=== PATIENT | female | born 2000 ===

== ENCOUNTER 2018-06-05 09:28 | Inpatient (IN) | payer OTHER ==
[2018-06-05 09:34] VITALS: BMI 24.6
--- NOTE | 2018-06-05 10:10 | ED PDOC ---
Addendum entered and electronically signed by Vane Keane PA-C 06/05/18 16:47: Addendum Addendum: 06/05/18 16:46 DX: appendicitis, Sepsis Original Note: HPI: Abdomen Time Seen by Provider: 06/05/18 09:40 Chief Complaint (Nursing): Abdominal Pain Chief Complaint (Provider): Abdominal pain History Per: Patient Additional Complaint(s): 18 yo female, no PMH, presents to ED with complaints of generalized abdominal pain, associated w/ nausea and vomiting since last night. No fever or chills, no denies diarrhea. Pt reports pain initially presented in epigastric region, now radiating down to lower quadrants. Past Medical History Reviewed: Nursing Documentation, Vital Signs Vital Signs: Last Vital Signs Temp 98.7 F 06/05/18 09:31 Pulse 96 H 06/05/18 09:31 Resp 20 06/05/18 09:31 BP 118/77 06/05/18 09:31 Pulse Ox 99 06/05/18 09:31 - Medical History PMH: No Chronic Diseases Denies: Chronic Kidney Disease - Surgical History Surgical History: - Family History Family History: States: No Known Family Hx - Living Arrangements Living Arrangements: With Family - Social History Current smoker - smoking cessation education provided: No Alcohol: None Drugs: Denies - Home Medications Home Medications: Ambulatory Orders Medication Instructions Recorded No Known Home Med 06/05/18 - Allergies Allergies/Adverse Reactions: Allergies Allergy/AdvReac Type Severity Reaction Status Date / Time No Known Allergies Allergy Verified 06/05/18 09:48 Review of Systems ROS Statement: Except As Marked, All Systems Reviewed And Found Negative Gastrointestinal: Positive for: Nausea, Vomiting, Abdominal Pain Physical Exam - Reviewed Nursing Documentation Reviewed: Yes Vital Signs Reviewed: Yes - Physical Exam Appears: Positive for: Well, Non-toxic, No Acute Distress Head Exam: Positive for: ATRAUMATIC, NORMAL INSPECTION, NORMOCEPHALIC Skin: Positive for: Normal Color, Warm, DRY Eye Exam: Positive for: EOMI, Normal appearance, PERRL ENT: Positive for: Normal ENT Inspection Neck: Positive for: Normal, Painless ROM Cardiovascular/Chest: Positive for: Regular Rate, Rhythm Respiratory: Positive for: CNT, Normal Breath Sounds Gastrointestinal/Abdominal: Positive for: Soft, Tenderness (epihastric, umbilical tenderness), Rebound. Negative for: Distended, Guarding Back: Positive for: Normal Inspection Extremity: Positive for: Normal ROM Neurologic/Psych: Positive for: Alert, Oriented - Laboratory Results Result Diagrams: 06/05/18 10:27 06/05/18 10:27 - ECG O2 Sat by Pulse Oximetry: 99 Medical Decision Making Medical Decision Making: IV access established and treatment initiated with IVF, Zofran and Toradol. On re-eval, Pt doing well, able to tolerate PO contrast Labs resulted WBC 18.2 Pulse 96 IMPRESSION: Possible thickened appendix in the anterior aspect of the mid to lower pelvis. Appendicitis cannot be excluded on this exam. Small low-density possible follicular cysts in the right ovary with a small amount of nonspecific fluid in the cul-de-sac region. Results called to the emergency room physician taking care of this patient. Surgical consultation is suggested. IV Cefoxitine Started. Blood cultures obtained Prior to antibiotic therapy. residential air sealing technician contacted and presented to see and evaluate pt at bedside. Arrangements made for admission. Pt advised to remain NPO Disposition - Clinical Impression Clinical Impression: Appendicitis - Patient ED Disposition Is Patient to be Admitted: Yes - Disposition Disposition Time: 15:13 Condition: STABLE Forms: [employer] (Kazakh) - Pt Status Changed To: Hospital Disposition Of: Inpatient - Admit Certification Admit to Inpatient:: After my assessment, the patient will require hospitalization for at least two midnights. This is because of the severity of symptoms shown, intensity of services needed, and/or the medical risk in this patient being treated as an outpatient.
[2018-06-05] MEDS ORDERED: Iohexol 240 (50 ml) PO ONE (10:14)
[2018-06-05] MEDS ORDERED: Iohexol 240 (50 ml) ONE (10:22)
[2018-06-05 10:40] LABS: BASO % 0.2 % (0.0-2.0); HEMOGLOBIN 12.6 g/dL (12.0-16.0); LYMPH % 7.2 % (20.0-40.0); MEAN CELL VOLUME 89.1 fl (81.0-99.0); MEAN CORPUSCULAR HEMOGLOBIN 29.8 pg (27.0-31.0); MEAN CORPUSCULAR HGB CONC 33.5 g/dL (33.0-37.0); MEAN PLATELET VOLUME 9.6 fl (7.2-11.7); MONO % 2.9 % (0.0-10.0); NEUT % 89.7 % (50.0-75.0); PLATELET COUNT 354 K/uL (130-400); RBC 4.23 Mil/uL (3.80-5.20); RED CELL DISTRIBUTION WIDTH 13.7 % (11.5-14.5); WHITE BLOOD COUNT 18.2 K/uL (4.8-10.8)
[2018-06-05 10:41] LABS: LYMPH # 1.3 K/uL (1.0-4.3); MONO # 0.5 K/uL (0.0-0.8); NEUT # 16.3 K/uL (1.8-7.0)
[2018-06-05 10:57] LABS: SQUAMOUS EPITHIAL 3 /hpf (0-5); URINE BILIRUBIN NEGATIVE (NEGATIVE); URINE BLOOD NEGATIVE (NEGATIVE); URINE CLARITY SLIGHTY-CLOUDY (Clear); URINE COLOR YELLOW (YELLOW); URINE GLUCOSE (UA) NEG (Normal); URINE LEUKOCYTE ESTERASE NEG Leu/uL (Negative); URINE PROTEIN 100 mg/dL (NEGATIVE)
[2018-06-05 10:58] LABS: ALB/GLOB RATIO 1.3 (1.0-2.1); ALBUMIN 4.8 g/dL (3.5-5.0); ALT/SGPT 22 U/L (9-52); AMYLASE 90 U/L (30-110); AST/SGOT 26 U/L (14-36); BLOOD UREA NITROGEN 9 mg/dl (7-17); CALCIUM 10.1 mg/dL (8.4-10.2); GFR NON-AFRICAN AMERICAN > 60; LIPASE 37 U/L (23-300)
[2018-06-05 11:42] LABS: ANISOCYTOSIS SLIGHT; BANDS 2 % (0-2); LYMPHOCYTE 8 % (20-50); MONOCYTE 1 % (0-10); NEUTROPHIL 89 % (42-75); PLATELET ESTIMATE NORMAL (NORMAL); TOTAL CELLS COUNTED 100
[2018-06-05] MEDS ORDERED: Iohexol 300 100 ML IJ ONE (12:28)
[2018-06-05] MEDS ORDERED: Sodium Chloride 0.9% 50 ML IV ONE (12:29)
--- NOTE | 2018-06-05 13:56 | CT ---
Date of service: 06/05/2018 PROCEDURE: CT Abdomen and Pelvis with contrast HISTORY: r/o appy COMPARISON: None. TECHNIQUE: Contrast dose: 95 mL Radiation dose: Total exam DLP = 439 mGy-cm. This CT exam was performed using one or more of the following dose reduction techniques: Automated exposure control, adjustment of the mA and/or kV according to patient size, and/or use of iterative reconstruction technique. FINDINGS: LOWER THORAX: No infiltrate is seen at the lung bases. No effusion is noted. Visualized distal esophagus is within normal limits. Visualized stomach is normal in outline without wall thickening. Duodenum is within normal limits. LIVER: Unremarkable. No gross lesion or ductal dilatation. GALLBLADDER AND BILE DUCTS: Unremarkable. PANCREAS: Unremarkable. No gross lesion or ductal dilatation. SPLEEN: Unremarkable. ADRENALS: Unremarkable. No mass. KIDNEYS AND URETERS: Unremarkable. No hydronephrosis. No solid mass. VASCULATURE: Unremarkable. No aortic aneurysm. BOWEL: No colonic wall thickening or pericolonic inflammatory change is seen. No small bowel dilatation or small bowel obstruction is noted. Terminal ileum is unremarkable. There may be some mildly thickened bowel loops within the lower abdomen an anterior pelvis. APPENDIX: There appears to be the suggestion of a thickened tubular structure in the anterior aspect of the abdomen. This would appear to reflect a possible thickened and inflamed appendix. There does not appear to be significant periappendiceal inflammatory changes. Alternatively this could represent a thickened small bowel loop although the former is felt to be more likely. Findings may suggest appendicitis in the correct clinical setting. No focal fluid collection to suggest abscess is seen. No free air or bowel wall perforation is noted. PERITONEUM: Small amount of fluid in the pelvis. No free air. LYMPH NODES: Unremarkable. No enlarged lymph nodes. BLADDER: Bladder is decompressed limiting evaluation. REPRODUCTIVE: Uterus is normal in size with a possible small amount of low-density fluid in the endometrial region. In addition there are small areas of decreased density seen in the right adnexa which may reflect some small ovarian follicles. Lesser degree are seen on the left. Small amount of fluid is also seen in the cul-de-sac region. BONES: No acute fracture. OTHER FINDINGS: None. IMPRESSION: Possible thickened appendix in the anterior aspect of the mid to lower pelvis. Appendicitis cannot be excluded on this exam. Small low-density possible follicular cysts in the right ovary with a small amount of nonspecific fluid in the cul-de-sac region. Results called to the emergency room physician taking care of this patient. Surgical consultation is suggested.
[2018-06-05] MEDS ORDERED: Lactated Ringer's 1,000 ML IV SCH ×2 (15:00→18:30)
--- NOTE | 2018-06-05 15:07 | CP.PCM.CON ---
History of Present Illness - History of Present Illness History of Present Illness: General Surgery Consult Note for Dr. Walker 18 year old female, no significant past medical history, presents to the emergency department with lower quadrant abdominal pain since last night. Patient states she was having intermittent abdominal pain described as achy, cramping that became more constant and sharp last night around 10pm. The pain was initially diffuse and has now localized to the lower quadrant bilaterally but worse in the periumbilical region. She had a similar episode 1.5 months ago that resolved with over the counter pain medication; however, this episode remained after taking Advil and a laxative. She vomiting 5x overnight with the last episode bilious, nonbloody. States that movement aggravates the pain and lying still alleviates symptoms. Her last bowel movement was yesterday evening. She denies passing of flatus since symptom onset. Admits to feeling nauseous. Denies fever, chills, shortness of breath, chest pain, or urinary symptoms. PMH: none PSH: x1 FH: non-contributory ALL: none Meds: none Review of Systems - Constitutional Constitutional: absent: Chills, Fever - Cardiovascular Cardiovascular: absent: Chest Pain, Palpitations - Respiratory Respiratory: absent: Cough, Dyspnea - Gastrointestinal Gastrointestinal: Abdominal Pain, Constipation, Cramping, Nausea, Vomiting. absent: Diarrhea, Excessive Flatus, Hematemesis, Hematochezia - Genitourinary Genitourinary: absent: Dysuria, Flank Pain, Hematuria - Musculoskeletal Musculoskeletal: absent: Arthralgias, Back Pain - Integumentary Integumentary: absent: Bleeding Lesions, Changing Lesions - Neurological Neurological: absent: Confusion, Dizziness - Psychiatric Psychiatric: absent: Anxiety, Depression Past Patient History - Infectious Disease Hx of Infectious Diseases: None - Tetanus Immunizations Tetanus Immunization: Unknown - Past Social History Alcohol: None Drugs: Denies - PULMONARY Hx Respiratory Disorders: No - NEUROLOGICAL Hx Neurological Disorder: No - HEENT Hx HEENT Problems: No - RENAL Hx Chronic Kidney Disease: No - ENDOCRINE/METABOLIC Hx Endocrine Disorders: No - HEMATOLOGICAL/ONCOLOGICAL Hx Blood Disorders: No - INTEGUMENTARY Hx Dermatological Problems: No - MUSCULOSKELETAL/RHEUMATOLOGICAL Hx Musculoskeletal Disorders: No - GASTROINTESTINAL Hx Gastrointestinal Disorders: No - GENITOURINARY/GYNECOLOGICAL Hx Genitourinary Disorders: No - PSYCHIATRIC Hx Psychophysiologic Disorder: No Hx Substance Use: No - SURGICAL HISTORY Hx Section: Yes - ANESTHESIA Hx Anesthesia: Yes Hx Anesthesia Reactions: No Meds Allergies/Adverse Reactions: Allergies Allergy/AdvReac Type Severity Reaction Status Date / Time No Known Allergies Allergy Verified 06/05/18 09:48 - Medications Medications: Current Medications Cefoxitin Sodium 2 gm/ Sodium (Chloride) 100 mls @ 100 mls/hr IVPB Q6 PAULO; Protocol Ciprofloxacin (Cipro 400mg/200ml Dsw) 400 mg in 200 mls @ 200 mls/hr IVPB Q12 PAULO; Protocol Metronidazole (Flagyl 500mg/100ml Ns) 100 mls @ 100 mls/hr IVPB Q12 PAULO; Protocol Lactated Ringer's (Lactated Ringer's) 1,000 mls @ 100 mls/hr IV .Q10H PAULO Morphine Sulfate (Morphine) 1 mg IVP Q4 PRN PRN Reason: Pain, moderate (4-7) Morphine Sulfate (Morphine) 2 mg IVP Q4 PRN PRN Reason: Pain, severe (8-10) Ondansetron HCl (Zofran Inj) 4 mg IVP Q6 PRN PRN Reason: Nausea/Vomiting Physical Exam - Constitutional Appears: Well, Non-toxic, No Acute Distress - Head Exam Head Exam: ATRAUMATIC, NORMAL INSPECTION, NORMOCEPHALIC - Eye Exam Eye Exam: EOMI Pupil Exam: PERRL - ENT Exam ENT Exam: Mucous Membranes Moist - Respiratory Exam Respiratory Exam: Clear to Auscultation Bilateral, NORMAL BREATHING PATTERN - Cardiovascular Exam Cardiovascular Exam: REGULAR RHYTHM, +S1, +S2. absent: Systolic Murmur - GI/Abdominal Exam GI & Abdominal Exam: Soft, Tenderness (diffuse tenderness particularly in the lower quadrants). absent: Distended, Guarding, Rebound - Neurological Exam Neurological exam: Alert, Oriented x3 - Psychiatric Exam Psychiatric exam: Normal Affect, Normal Mood - Skin Skin Exam: Dry, Intact, Normal Color, Warm Results - Vital Signs Recent Vital Signs: Last Vital Signs Temp 98.7 F 06/05/18 09:31 Pulse 96 H 06/05/18 09:31 Resp 20 06/05/18 09:31 BP 118/77 06/05/18 09:31 Pulse Ox 99 06/05/18 15:01 - Labs Result Diagrams: 06/05/18 10:27 06/05/18 10:27 Labs: Laboratory Results - last 24 hr 06/05/18 06/05/18 06/05/18 10:27 10:27 10:27 WBC 18.2 H RBC 4.23 Hgb 12.6 Hct 37.6 MCV 89.1 MCH 29.8 MCHC 33.5 RDW 13.7 Plt Count 354 MPV 9.6 Neut % (Auto) 89.7 H Lymph % (Auto) 7.2 L [place] % (Auto) 2.9 Eos % (Auto) 0.0 Baso % (Auto) 0.2 Neut # (Auto) 16.3 H Lymph # (Auto) 1.3 [place] # (Auto) 0.5 Eos # (Auto) 0.0 Baso # (Auto) 0.0 Neutrophils % (Manual) 89 H Band Neutrophils % 2 Lymphocytes % (Manual) 8 L Monocytes % (Manual) 1 Platelet Estimate Normal Anisocytosis (manual) Slight Sodium 139 Potassium 4.3 Chloride 105 Carbon Dioxide 24 Anion Gap 14 BUN 9 Creatinine 0.5 L Est GFR ( Amer) > 60 Est GFR (Non-Af Amer) > 60 Random Glucose 123 H Calcium 10.1 Total Bilirubin 0.7 AST 26 ALT 22 Alkaline Phosphatase 81 Total Protein 8.4 H Albumin 4.8 Globulin 3.6 Albumin/Globulin Ratio 1.3 Amylase 90 Lipase 37 Urine Color Yellow Urine Clarity Slighty-cloudy Urine pH 7.0 Ur Specific [place] 1.024 Urine Protein 100 Urine Glucose (UA) Neg Urine Ketones Trace Urine Blood Negative Urine Nitrate Negative Urine Bilirubin Negative Urine Urobilinogen 2.0 H Ur Leukocyte Esterase Neg Urine RBC (Auto) 3 Urine Microscopic WBC 5 Ur Squamous Epith Cells 3 Assessment & Plan - Assessment and Plan (Free Text) Assessment: 18F, no significant PMH, w/ acute appendicitis Plan: -NPO -IVF -IV Abx -Pain control and antiemetics -OR today -Consented -Further recommendations per Dr. Aaron Logan PGY1
[2018-06-05] MEDS: cefOXitin 2 GM in Sodium Chloride 0.9% 100 ML IVPB SCH ×2 (15:45→16:00)
[2018-06-05 15:48] LABS: VENOUS BLOOD GAS BASE EXCESS -1.8 mmol/L (0.0-2.0); VENOUS BLOOD GAS PCO2 42 mmHg (40-60); VENOUS BLOOD GAS PO2 35 mm/Hg (30-55); VENOUS BLOOD PH 7.36 (7.32-7.43)
--- NOTE | 2018-06-05 16:30 | CP.PCM.HP ---
<Angel Ricks - Last Filed: 06/05/18 17:09> History of Present Illness - History of Present Illness History of Present Illness: This is 18 y/o female with PMH of exercise induced asthma comes to the ER c/o 1 day history of abdominal pain and vomiting. Abdominal pain started at 10 pm last night on right upper abdomen which progressed to right lower and left abdomen. Patient woke up few times from sleep overnight due to this pain, reports taking laxatives and Advil to relive this pain but didn't really help. Pain is 8/10, generalized, sharp associated with nausea and vomiting, movements make it worse, denies any fever. Patient reports NBNB vomiting x5 overnight, no f/c/d/c. Patient denies any chest pain, SOB, urinary symptoms or weakness. PMD: [place] [place] PMH: Exercise induced asthma in childhood PSH: , 4 years ago Meds: None Allg: Denies FH: + For liver cancers SH: Social alcohol and smoking, no illicit drug use ROS: As per HPI ER Course: VS: 98.7, 96, 20, 118/77, 99% CBC: Significant for wbc 18.2 CMP: wnl VBG and UA was done Pending Coag, Bcx CT Abdo/Pelvis: Appendicitis S/p Cefoxitine C/w Cipro and Flagyl S/P IVF, Morphine, pepcid and Zofran Present on Admission - Present on Admission Any Indicators Present on Admission: No Past Patient History - Infectious Disease Hx of Infectious Diseases: None - Tetanus Immunizations Tetanus Immunization: Unknown - Past Medical History & Family History Past Medical History?: No - Past Social History Alcohol: None Drugs: Denies - CARDIAC Hx Cardiac Disorders: No - PULMONARY Hx Respiratory Disorders: Yes (exercise-induced) - NEUROLOGICAL Hx Neurological Disorder: No - HEENT Hx HEENT Problems: No - RENAL Hx Chronic Kidney Disease: No - ENDOCRINE/METABOLIC Hx Endocrine Disorders: No - HEMATOLOGICAL/ONCOLOGICAL Hx Blood Disorders: No - INTEGUMENTARY Hx Dermatological Problems: No - MUSCULOSKELETAL/RHEUMATOLOGICAL Hx Musculoskeletal Disorders: No - GASTROINTESTINAL Hx Gastrointestinal Disorders: No - GENITOURINARY/GYNECOLOGICAL Hx Genitourinary Disorders: No - PSYCHIATRIC Hx Psychophysiologic Disorder: No - SURGICAL HISTORY Hx Section: Yes - ANESTHESIA Hx Anesthesia: Yes Hx Anesthesia Reactions: No Meds Allergies/Adverse Reactions: Allergies Allergy/AdvReac Type Severity Reaction Status Date / Time No Known Allergies Allergy Verified 06/05/18 09:48 Physical Exam - Constitutional Appears: No Acute Distress - Head Exam Head Exam: NORMAL INSPECTION - Eye Exam Eye Exam: EOMI, Normal appearance, PERRL Pupil Exam: NORMAL ACCOMODATION - ENT Exam ENT Exam: Mucous Membranes Moist - Neck Exam Neck exam: Positive for: Normal Inspection - Respiratory Exam Respiratory Exam: Clear to Auscultation Bilateral, NORMAL BREATHING PATTERN. absent: Accessory Muscle Use, Chest Wall Tenderness, Decreased Breath Sounds, Prolonged Expiratory Phase, Wheezes - Cardiovascular Exam Cardiovascular Exam: REGULAR RHYTHM, +S1, +S2 - GI/Abdominal Exam GI & Abdominal Exam: Hypoactive Bowel Sounds, Soft, Tenderness (periumbilical and RLQ). absent: Organomegaly, Rebound - Extremities Exam Extremities exam: Positive for: normal inspection - Back Exam Back exam: NORMAL INSPECTION. absent: CVA tenderness (L), CVA tenderness (R) - Neurological Exam Neurological exam: Alert, CN II-XII Intact, Normal Gait, Oriented x3 - Psychiatric Exam Psychiatric exam: Normal Affect - Skin Skin Exam: Normal Color Results - Vital Signs Recent Vital Signs: Last Vital Signs Temp 98.7 F 06/05/18 16:03 Pulse 96 H 06/05/18 16:03 Resp 20 06/05/18 16:03 BP 118/77 06/05/18 16:03 Pulse Ox 99 06/05/18 15:14 - Labs Result Diagrams: 06/05/18 10:27 06/05/18 10:27 Labs: Laboratory Results - last 24 hr 06/05/18 06/05/18 06/05/18 10:27 10:27 10:27 WBC 18.2 H RBC 4.23 Hgb 12.6 Hct 37.6 MCV 89.1 MCH 29.8 MCHC 33.5 RDW 13.7 Plt Count 354 MPV 9.6 Neut % (Auto) 89.7 H Lymph % (Auto) 7.2 L [place] % (Auto) 2.9 Eos % (Auto) 0.0 Baso % (Auto) 0.2 Neut # (Auto) 16.3 H Lymph # (Auto) 1.3 [place] # (Auto) 0.5 Eos # (Auto) 0.0 Baso # (Auto) 0.0 Neutrophils % (Manual) 89 H Band Neutrophils % 2 Lymphocytes % (Manual) 8 L Monocytes % (Manual) 1 Platelet Estimate Normal Anisocytosis (manual) Slight pO2 VBG pH VBG pCO2 VBG HCO3 VBG Total CO2 VBG O2 Sat (Calc) VBG Base Excess VBG Potassium Glucose Lactate FiO2 Sodium 139 Potassium 4.3 Chloride 105 Carbon Dioxide 24 Anion Gap 14 BUN 9 Creatinine 0.5 L Est GFR ( Amer) > 60 Est GFR (Non-Af Amer) > 60 Random Glucose 123 H Calcium 10.1 Total Bilirubin 0.7 AST 26 ALT 22 Alkaline Phosphatase 81 Total Protein 8.4 H Albumin 4.8 Globulin 3.6 Albumin/Globulin Ratio 1.3 Amylase 90 Lipase 37 Venous Blood Potassium Urine Color Yellow Urine Clarity Slighty-cloudy Urine pH 7.0 Ur Specific [place] 1.024 Urine Protein 100 Urine Glucose (UA) Neg Urine Ketones Trace Urine Blood Negative Urine Nitrate Negative Urine Bilirubin Negative Urine Urobilinogen 2.0 H Ur Leukocyte Esterase Neg Urine RBC (Auto) 3 Urine Microscopic WBC 5 Ur Squamous Epith Cells 3 06/05/18 15:45 WBC RBC Hgb Hct MCV MCH MCHC RDW Plt Count MPV Neut % (Auto) Lymph % (Auto) [place] % (Auto) Eos % (Auto) Baso % (Auto) Neut # (Auto) Lymph # (Auto) [place] # (Auto) Eos # (Auto) Baso # (Auto) Neutrophils % (Manual) Band Neutrophils % Lymphocytes % (Manual) Monocytes % (Manual) Platelet Estimate Anisocytosis (manual) pO2 35 VBG pH 7.36 VBG pCO2 42 VBG HCO3 22.6 VBG Total CO2 25.0 VBG O2 Sat (Calc) 71.7 H VBG Base Excess -1.8 L VBG Potassium 3.3 L Glucose 96 Lactate 0.9 FiO2 21.0 Sodium 136.0 Potassium Chloride 106.0 Carbon Dioxide Anion Gap BUN Creatinine Est GFR ( Amer) Est GFR (Non-Af Amer) Random Glucose Calcium Total Bilirubin AST ALT Alkaline Phosphatase Total Protein Albumin Globulin Albumin/Globulin Ratio Amylase Lipase Venous Blood Potassium 3.3 L Urine Color Urine Clarity Urine pH Ur Specific [place] Urine Protein Urine Glucose (UA) Urine Ketones Urine Blood Urine Nitrate Urine Bilirubin Urine Urobilinogen Ur Leukocyte Esterase Urine RBC (Auto) Urine Microscopic WBC Ur Squamous Epith Cells Assessment & Plan - Assessment and Plan (Free Text) Assessment: A/P: 18 y/o female with PMH of exercise induced asthma admitted to [facility] for evaluation and treatment of Appendicitis and Sepsis. Patient is medically optimized for the surgery. Sepsis, Criteries met with Appendicitis, HR over 90, and 18.2 WBC - Consult surgery, Dr. Walker, follow up recommendations - Monitor VS - NPO, C/w fluids - C/w Cipro and Flagyl, S/p Cefoxitin Appendicitis - Consult surgery, Dr. Walker, follow up recommendations - Monitor VS - NPO, C/w fluids - C/w Cipro and Flagyl, S/p Cefoxitin - Possible surgical intervention - Patient is medically optimized for the surgery Exercise induced Asthma - Controlled, Asymptomatic - No medications for years DVT PPX - SCD <Yuriy Light D - Last Filed: 06/05/18 19:11> Results - Vital Signs Recent Vital Signs: Last Vital Signs Temp 100.5 F H 06/05/18 18:45 Pulse 107 H 06/05/18 18:45 Resp 15 06/05/18 18:45 BP 123/79 06/05/18 18:45 Pulse Ox 99 06/05/18 18:45 - Labs Result Diagrams: 06/05/18 10:27 06/05/18 10:27 Labs: Laboratory Results - last 24 hr 06/05/18 06/05/18 06/05/18 10:27 10:27 10:27 WBC 18.2 H RBC 4.23 Hgb 12.6 Hct 37.6 MCV 89.1 MCH 29.8 MCHC 33.5 RDW 13.7 Plt Count 354 MPV 9.6 Neut % (Auto) 89.7 H Lymph % (Auto) 7.2 L [place] % (Auto) 2.9 Eos % (Auto) 0.0 Baso % (Auto) 0.2 Neut # (Auto) 16.3 H Lymph # (Auto) 1.3 [place] # (Auto) 0.5 Eos # (Auto) 0.0 Baso # (Auto) 0.0 Neutrophils % (Manual) 89 H Band Neutrophils % 2 Lymphocytes % (Manual) 8 L Monocytes % (Manual) 1 Platelet Estimate Normal Anisocytosis (manual) Slight PT INR APTT pO2 VBG pH VBG pCO2 VBG HCO3 VBG Total CO2 VBG O2 Sat (Calc) VBG Base Excess VBG Potassium Glucose Lactate FiO2 Sodium 139 Potassium 4.3 Chloride 105 Carbon Dioxide 24 Anion Gap 14 BUN 9 Creatinine 0.5 L Est GFR ( Amer) > 60 Est GFR (Non-Af Amer) > 60 Random Glucose 123 H Calcium 10.1 Total Bilirubin 0.7 AST 26 ALT 22 Alkaline Phosphatase 81 Total Protein 8.4 H Albumin 4.8 Globulin 3.6 Albumin/Globulin Ratio 1.3 Amylase 90 Lipase 37 Venous Blood Potassium Urine Color Yellow Urine Clarity Slighty-cloudy Urine pH 7.0 Ur Specific [place] 1.024 Urine Protein 100 Urine Glucose (UA) Neg Urine Ketones Trace Urine Blood Negative Urine Nitrate Negative Urine Bilirubin Negative Urine Urobilinogen 2.0 H Ur Leukocyte Esterase Neg Urine RBC (Auto) 3 Urine Microscopic WBC 5 Ur Squamous Epith Cells 3 06/05/18 06/05/18 15:45 15:54 WBC RBC Hgb Hct MCV MCH MCHC RDW Plt Count MPV Neut % (Auto) Lymph % (Auto) [place] % (Auto) Eos % (Auto) Baso % (Auto) Neut # (Auto) Lymph # (Auto) [place] # (Auto) Eos # (Auto) Baso # (Auto) Neutrophils % (Manual) Band Neutrophils % Lymphocytes % (Manual) Monocytes % (Manual) Platelet Estimate Anisocytosis (manual) PT 14.0 H INR 1.3 APTT 42.1 H pO2 35 VBG pH 7.36 VBG pCO2 42 VBG HCO3 22.6 VBG Total CO2 25.0 VBG O2 Sat (Calc) 71.7 H VBG Base Excess -1.8 L VBG Potassium 3.3 L Glucose 96 Lactate 0.9 FiO2 21.0 Sodium 136.0 Potassium Chloride 106.0 Carbon Dioxide Anion Gap BUN Creatinine Est GFR ( Amer) Est GFR (Non-Af Amer) Random Glucose Calcium Total Bilirubin AST ALT Alkaline Phosphatase Total Protein Albumin Globulin Albumin/Globulin Ratio Amylase Lipase Venous Blood Potassium 3.3 L Urine Color Urine Clarity Urine pH Ur Specific [place] Urine Protein Urine Glucose (UA) Urine Ketones Urine Blood Urine Nitrate Urine Bilirubin Urine Urobilinogen Ur Leukocyte Esterase Urine RBC (Auto) Urine Microscopic WBC Ur Squamous Epith Cells Attending/Attestation - Attestation I have personally seen and examined this patient.: Yes I have fully participated in the care of the patient.: Yes I have reviewed all pertinent clinical information: Yes
[2018-06-05] MEDS ORDERED: Propofol 10 mg/ml Inj (20 ML) ONE (16:57)
[2018-06-05] MEDS ORDERED: Lidocaine 4% (Laryng-O-Jet) Kit MM ONE (16:58)
[2018-06-05] MEDS ORDERED: Midazolam 2 MG/2 ML VIAL ONE (16:58)
[2018-06-05] MEDS ORDERED: Desflurane Inhalation Anesthetic Liq (240 ml) ONE (16:58)
[2018-06-05] MEDS ORDERED: Lidocaine 1% 5ml Abboject ONE (16:58)
[2018-06-05] MEDS ORDERED: Neostigmine 1:1000 (1 mg/ml) Inj ONE (16:58)
[2018-06-05] MEDS ORDERED: Rocuronium 10 mg/ml (5 ml) ONE (16:58)
[2018-06-05] MEDS ORDERED: Succinylcholine 200 mg/10 ml Inj IV ONE (16:58)
[2018-06-05 16:59] LABS: INR 1.3; PARTIAL THROMBOPLASTIN TIME 42.1 Seconds (25.6-37.1)
[2018-06-05] MEDS ORDERED: Bupivacaine HCl 0.5% PF (30 ml) Inj ONE (17:22)
[2018-06-05] MEDS ORDERED: Lactated Ringer's 1,000 ML IV ONE (17:23)
[2018-06-05] MEDS ORDERED: Bupivacaine 0.5% Inj(30mL) IJ ONE (17:48)
[2018-06-05] MEDS ORDERED: Oxycodone/Acetaminophen 5/325 mg Tab PO PRN (18:15)
--- NOTE | 2018-06-05 18:18 | PCM.SURG1 ---
Surgeon's Initial Post Op Note - Surgeon's Notes Surgeon: Dr. Walker Auto Driver: Dr. Logan PGY1 Type of Anesthesia: General Endo Pre-Operative Diagnosis: acute appendicitis Operative Findings: see operative dictation note Post-Operative Diagnosis: acute appendicitis Operation Performed: laparoscopic appendectomy Specimen/Specimens Removed: appendix Estimated Blood Loss: EBL {In ML}: 4 Blood Products Given: N/A Drains Used: No Drains Post-Op Condition: Good Date of Surgery/Procedure: 06/05/18 Time of Surgery/Procedure: 18:18
[2018-06-05] MEDS ORDERED: HYDROmorphone 0.5 mg/0.5 ml ISec IVP PRN (18:19)
--- NOTE | 2018-06-05 20:04 | OP ---
PROCEDURE DATE: 06/05/2018 SURGEON: Lemuel Walker MD DATABASE REPORT WRITER: PREOPERATIVE DIAGNOSIS: Acute appendicitis. POSTOPERATIVE DIAGNOSIS: Acute appendicitis. OPERATION: Laparoscopic appendectomy and Keith catheter placement. ANESTHESIA: General. ANESTHESIOLOGIST: Willie Ernandez MD ESTIMATED BLOOD LOSS: Minimal. OPERATIVE FINDINGS: Acute appendicitis. PREPARATION AND PROCEDURE: The patient was taken to the operating room and placed supine on the operating room table. After induction of general anesthesia, a Keith catheter was placed to decompress the bladder and the abdomen was prepped and draped in the standard surgical fashion. A Veress needle was inserted into the abdomen and the abdomen was insufflated. Once the abdomen was insufflated, a 5-mm trocar was placed through the umbilicus and a diagnostic laparoscopy was performed. The diagnostic laparoscopy revealed inflammation in the right lower quadrant. The patient was then placed into the Trendelenburg and left side down position, and a 5 mm suprapubic trocar as well as a 12 mm left-sided trocar were placed under direct vision. The appendix was then found at the base of the cecum, grasped, and pulled upwards. A window was made in the mesoappendix using the [place] dissector. Once the window was made in the mesoappendix, the Endo-YESSI was fired across the appendix and the base of the appendix and cecum were severed. A second firing of the Endo-YESSI using a vascular load was used to fire across the mesoappendix. Once the mesoappendix was severed, the appendix was placed into an EndoCatch bag. The patient then returned to the flat position. The area was inspected for hemostasis and there was no evidence of bleeding. The right lower quadrant was copiously irrigated and the irrigant was removed. The appendix was then removed via the 12 mm trocar site and the 12 mm trocar and the 5-mm trocars were removed under direct vision. The fascia of the 12 mm trocar site was reapproximated using #0 Vicryl and the skin incisions were closed using #4-0 Monocryl. The patient was then awakened from general anesthesia. The Keith catheter was removed. Sponges, instruments, and needle counts were all correct at the end of the case. Lemuel Walker MD [facility] # [id number]
[2018-06-05] MEDS ORDERED: Benzocaine/Menthol (Cepacol) Lozenge PO PRN (20:36)
[2018-06-05] MEDS: metroNIDAZOLE 500mg/100ml NS 100 ML IVPB SCH (21:30)
[2018-06-05] MEDS: Ciprofloxacin 400mg/200ml D5W 400 MG/200 ML BAG IVPB SCH (21:53)
[2018-06-05] MEDS: Enoxaparin 30 mg Syringe SC SCH (23:16)
[2018-06-06] MEDS: Dextrose 5%/0.45% NS 1,000 ML IV SCH ×2 (00:50→09:16)
[2018-06-06 07:21] LABS: BASO % 0.2 % (0.0-2.0); EOS % 0.1 % (0.0-4.0); HEMOGLOBIN 10.9 g/dL (12.0-16.0); LYMPH # 1.5 K/uL (1.0-4.3); LYMPH % 9.4 % (20.0-40.0); MEAN CELL VOLUME 89.5 fl (81.0-99.0); MEAN CORPUSCULAR HEMOGLOBIN 29.7 pg (27.0-31.0); MEAN CORPUSCULAR HGB CONC 33.2 g/dL (33.0-37.0); MEAN PLATELET VOLUME 9.8 fl (7.2-11.7); MONO # 0.6 K/uL (0.0-0.8); MONO % 3.9 % (0.0-10.0); NEUT # 13.5 K/uL (1.8-7.0); NEUT % 86.4 % (50.0-75.0); RBC 3.67 Mil/uL (3.80-5.20); RED CELL DISTRIBUTION WIDTH 13.5 % (11.5-14.5); WHITE BLOOD COUNT 15.7 K/uL (4.8-10.8)
[2018-06-06 07:44] LABS: BLOOD UREA NITROGEN 3 mg/dl (7-17); CALCIUM 9.2 mg/dL (8.4-10.2); GFR NON-AFRICAN AMERICAN > 60
--- NOTE | 2018-06-06 07:50 | CP.PCM.PN ---
Subjective - Date & Time of Evaluation Date of Evaluation: 06/06/18 Time of Evaluation: 07:48 - Subjective Subjective: General Surgery Progress Note for Dr. Walker 18F seen and evaluated at bedside this morning. No acute events overnight. Pain well controlled. Ambulating without difficulty. Tolerating diet. Passing flatus, no bowel movement. No difficulty with urination. Denies f/c/n/v/d/SOB. Objective - Vital Signs/Intake and Output Vital Signs (last 24 hours): Temp Pulse Resp BP Pulse Ox 98 F 80 19 115/74 99 06/06/18 06:31 06/06/18 06:31 06/06/18 06:31 06/06/18 06:31 06/06/18 06:31 - Medications Medications: Current Medications Acetaminophen (Tylenol 325mg Tab) 650 mg PO Q4 PRN PRN Reason: Fever >100.4 F Acetaminophen (Tylenol 325mg Tab) 650 mg PO Q4 PRN PRN Reason: Pain, Mild (1-3) Benzocaine/Menthol (Cepacol Sore Throat) 1 burke PO Q2 PRN PRN Reason: Sore Throat Enoxaparin Sodium (Lovenox) 30 mg SC HS PAULO; Protocol Last Admin: 06/05/18 23:16 Dose: Not Given Ciprofloxacin (Cipro 400mg/200ml Dsw) 400 mg in 200 mls @ 200 mls/hr IVPB Q12 PAULO; Protocol Last Admin: 06/05/18 21:53 Dose: 200 mls/hr Metronidazole (Flagyl 500mg/100ml Ns) 100 mls @ 100 mls/hr IVPB Q12 PAULO; Protocol Last Admin: 06/05/18 21:30 Dose: 100 mls/hr Dextrose/Sodium Chloride (Dextrose 5%/0.45% Ns 1000 Ml) 1,000 mls @ 125 mls/hr IV .Q8H PAULO Last Admin: 06/06/18 00:50 Dose: Not Given Lactated Ringer's (Lactated Ringer's) 1,000 mls @ 100 mls/hr IV .Q10H PAULO Last Admin: 06/06/18 05:28 Dose: 100 mls/hr Morphine Sulfate (Morphine) 1 mg IVP Q4 PRN PRN Reason: Pain, moderate (4-7) Last Admin: 06/06/18 05:51 Dose: 1 mg Morphine Sulfate (Morphine) 2 mg IVP Q4 PRN PRN Reason: Pain, severe (8-10) Last Admin: 06/05/18 19:36 Dose: 2 mg Ondansetron HCl (Zofran Inj) 4 mg IVP Q6 PRN PRN Reason: Nausea/Vomiting Last Admin: 06/05/18 23:18 Dose: 4 mg Oxycodone/Acetaminophen (Percocet 5/325 Mg Tab) 1 tab PO Q4 PRN PRN Reason: Pain, moderate (4-7) Stop: 06/08/18 18:16 Oxycodone/Acetaminophen (Percocet 5/325 Mg Tab) 2 tab PO Q4 PRN PRN Reason: Pain, severe (8-10) Stop: 06/08/18 18:16 - Labs Labs: 06/06/18 05:20 06/06/18 05:20 PT 14.0 Seconds (9.8-13.1) H 06/05/18 15:54 INR 1.3 06/05/18 15:54 APTT 42.1 Seconds (25.6-37.1) H 06/05/18 15:54 - Constitutional Appears: Well, Non-toxic, No Acute Distress - Eye Exam Eye Exam: EOMI Pupil Exam: PERRL - ENT Exam ENT Exam: Mucous Membranes Moist - Respiratory Exam Respiratory Exam: Clear to Ausculation Bilateral, NORMAL BREATHING PATTERN - Cardiovascular Exam Cardiovascular Exam: REGULAR RHYTHM, +S1, +S2. absent: Murmur - GI/Abdominal Exam GI & Abdominal Exam: Soft, Tenderness, Normal Bowel Sounds Additional comments: incision sites clean/dry/intact - Neurological Exam Neurological Exam: Alert, Awake, Oriented x3 - Psychiatric Exam Psychiatric exam: Normal Affect, Normal Mood - Skin Skin Exam: Dry, Intact, Normal Color, Warm Assessment and Plan - Assessment and Plan (Free Text) Assessment: 18F with acute appendicitis s/p laparoscopic appendectomy POD#1 Plan: -Continue pain control -Antiemeteics -Encourage ambulation and IS use -Cleared from a surgical standpoint for discharge -D/w attending Dr. Aaron Logan PGY1
[2018-06-06] MEDS: metroNIDAZOLE 500mg/100ml NS 100 ML IVPB SCH ×2 (08:12→20:31)
[2018-06-06] MEDS: Oxycodone/Acetaminophen 5/325 mg Tab PO PRN ×3 (08:59→21:52)
[2018-06-06] MEDS: Ciprofloxacin 400mg/200ml D5W 400 MG/200 ML BAG IVPB SCH (09:31)
--- NOTE | 2018-06-06 10:28 | CP.PCM.DIS ---
Provider - Provider Date of Admission: 06/05/18 16:23 Attending physician: Yuriy Light MD Hospital Course - Lab Results Lab Results: Most Recent Lab Values WBC 15.7 K/uL (4.8-10.8) H 06/06/18 05:20 RBC 3.67 Mil/uL (3.80-5.20) L 06/06/18 05:20 Hgb 10.9 g/dL (12.0-16.0) L 06/06/18 05:20 Hct 32.9 % (34.0-47.0) L 06/06/18 05:20 MCV 89.5 fl (81.0-99.0) 06/06/18 05:20 MCH 29.7 pg (27.0-31.0) 06/06/18 05:20 MCHC 33.2 g/dL (33.0-37.0) 06/06/18 05:20 RDW 13.5 % (11.5-14.5) 06/06/18 05:20 Plt Count 283 K/uL (130-400) 06/06/18 05:20 MPV 9.8 fl (7.2-11.7) 06/06/18 05:20 Neut % (Auto) 86.4 % (50.0-75.0) H 06/06/18 05:20 Lymph % (Auto) 9.4 % (20.0-40.0) L 06/06/18 05:20 [place] % (Auto) 3.9 % (0.0-10.0) 06/06/18 05:20 Eos % (Auto) 0.1 % (0.0-4.0) 06/06/18 05:20 Baso % (Auto) 0.2 % (0.0-2.0) 06/06/18 05:20 Neut # (Auto) 13.5 K/uL (1.8-7.0) H 06/06/18 05:20 Lymph # (Auto) 1.5 K/uL (1.0-4.3) 06/06/18 05:20 [place] # (Auto) 0.6 K/uL (0.0-0.8) 06/06/18 05:20 Eos # (Auto) 0.0 K/uL (0.0-0.7) 06/06/18 05:20 Baso # (Auto) 0.0 K/uL (0.0-0.2) 06/06/18 05:20 Neutrophils % (Manual) 89 % (42-75) H 06/05/18 10:27 Band Neutrophils % 2 % (0-2) 06/05/18 10:27 Lymphocytes % (Manual) 8 % (20-50) L 06/05/18 10:27 Monocytes % (Manual) 1 % (0-10) 06/05/18 10:27 Platelet Estimate Normal (NORMAL) 06/05/18 10:27 Anisocytosis (manual) Slight 06/05/18 10:27 PT 14.0 Seconds (9.8-13.1) H 06/05/18 15:54 INR 1.3 06/05/18 15:54 APTT 42.1 Seconds (25.6-37.1) H 06/05/18 15:54 pO2 35 mm/Hg (30-55) 06/05/18 15:45 VBG pH 7.36 (7.32-7.43) 06/05/18 15:45 VBG pCO2 42 mmHg (40-60) 06/05/18 15:45 VBG HCO3 22.6 mmol/L 06/05/18 15:45 VBG Total CO2 25.0 mmol/L (22-28) 06/05/18 15:45 VBG O2 Sat (Calc) 71.7 % (40-65) H 06/05/18 15:45 VBG Base Excess -1.8 mmol/L (0.0-2.0) L 06/05/18 15:45 VBG Potassium 3.3 mmol/L (3.6-5.2) L 06/05/18 15:45 Sodium 136.0 mmol/L (132-148) 06/05/18 15:45 Chloride 106.0 mmol/L (98-107) 06/05/18 15:45 Glucose 96 mg/dL (65-105) 06/05/18 15:45 Lactate 0.9 mmol/L (0.7-2.1) 06/05/18 15:45 FiO2 21.0 % 06/05/18 15:45 Sodium 138 mmol/l (132-148) 06/06/18 05:20 Potassium 3.6 MMOL/L (3.6-5.0) 06/06/18 05:20 Chloride 106 mmol/L (98-107) 06/06/18 05:20 Carbon Dioxide 22 mmol/L (22-30) 06/06/18 05:20 Anion Gap 14 (10-20) 06/06/18 05:20 BUN 3 mg/dl (7-17) L 06/06/18 05:20 Creatinine 0.5 mg/dl (0.7-1.2) L 06/06/18 05:20 Est GFR ( Amer) > 60 06/06/18 05:20 Est GFR (Non-Af Amer) > 60 06/06/18 05:20 Random Glucose 87 mg/dL (65-105) 06/06/18 05:20 Calcium 9.2 mg/dL (8.4-10.2) 06/06/18 05:20 Total Bilirubin 0.7 mg/dl (0.2-1.3) 06/05/18 10:27 AST 26 U/L (14-36) 06/05/18 10:27 ALT 22 U/L (9-52) 06/05/18 10:27 Alkaline Phosphatase 81 U/L (38-126) 06/05/18 10:27 Total Protein 8.4 G/DL (6.3-8.2) H 06/05/18 10:27 Albumin 4.8 g/dL (3.5-5.0) 06/05/18 10:27 Globulin 3.6 gm/dL (2.2-3.9) 06/05/18 10:27 Albumin/Globulin Ratio 1.3 (1.0-2.1) 06/05/18 10:27 Amylase 90 U/L (30-110) 06/05/18 10:27 Lipase 37 U/L (23-300) 06/05/18 10:27 Venous Blood Potassium 3.3 mmol/L (3.6-5.2) L 06/05/18 15:45 Urine Color Yellow (YELLOW) 06/05/18 10:27 Urine Clarity Slighty-cloudy (Clear) 06/05/18 10:27 Urine pH 7.0 (5.0-8.0) 06/05/18 10:27 Ur Specific Jean 1.024 (1.003-1.030) 06/05/18 10:27 Urine Protein 100 mg/dL (NEGATIVE) 06/05/18 10:27 Urine Glucose (UA) Neg mg/dL (Normal) 06/05/18 10:27 Urine Ketones Trace mg/dL (NEGATIVE) 06/05/18 10:27 Urine Blood Negative (NEGATIVE) 06/05/18 10:27 Urine Nitrate Negative (NEGATIVE) 06/05/18 10:27 Urine Bilirubin Negative (NEGATIVE) 06/05/18 10:27 Urine Urobilinogen 2.0 mg/dL (0.2-1.0) H 06/05/18 10:27 Ur Leukocyte Esterase Neg Stefan/uL (Negative) 06/05/18 10:27 Urine RBC (Auto) 3 /hpf (0-3) 06/05/18 10:27 Urine Microscopic WBC 5 /hpf (0-5) 06/05/18 10:27 Ur Squamous Epith Cells 3 /hpf (0-5) 06/05/18 10:27 Discharge Exam - Head Exam Head Exam: ATRAUMATIC, NORMAL INSPECTION, NORMOCEPHALIC Discharge Plan - Follow Up Plan Condition: STABLE Disposition: HOME/ ROUTINE Additional Instructions: Please follow up in Dr. Walker's office in 2 weeks. For pain, over the counter Tylenol and Ibuprofen. Please do not take baths or go in pools for the next 2 weeks. Okay to shower. You can remove the band-aids tomorrow (06/07/18), and you will notice glue over the incision sites. Do not scratch off the glue as it will slowly flake off on its own over the next 1-2 weeks. No heavy lifting for the next 4-6 weeks greater than 15-20 pounds. Referrals: Lemuel Walker MD [Staff Provider] -
[2018-06-06] MEDS ORDERED: Cefepime 1 GM in Sodium Chloride 0.9% 100 ML IVPB SCH ×2 (11:30→13:45)
[2018-06-06] MEDS: Cefepime 1 GM in Sodium Chloride 0.9% 100 ML IVPB SCH ×2 (13:43→20:33)
[2018-06-06] MEDS: Sodium Chloride 0.9% 1,000 ML IV SCH ×2 (13:44→22:48)
--- NOTE | 2018-06-06 15:23 | CP.PCM.PN ---
<Shalini Linares - Last Filed: 06/06/18 16:49> Subjective - Date & Time of Evaluation Date of Evaluation: 06/06/18 Time of Evaluation: 10:03 - Subjective Subjective: Patient seen and examined this AM with great grandmother at bedside. Patient laying in bed in no acute, complaining of mild abdominal pain at the surgical sites. She reported being unable to finish her breakfast She denied any fever, chills, chest pain or shortness of breath. Objective - Vital Signs/Intake and Output Vital Signs (last 24 hours): Temp Pulse Resp BP Pulse Ox 97.8 F 98 H 16 108/66 97 06/06/18 12:00 06/06/18 12:00 06/06/18 12:00 06/06/18 12:00 06/06/18 12:00 - Medications Medications: Current Medications Acetaminophen (Tylenol 325mg Tab) 650 mg PO Q4 PRN PRN Reason: Fever >100.4 F Acetaminophen (Tylenol 325mg Tab) 650 mg PO Q4 PRN PRN Reason: Pain, Mild (1-3) Benzocaine/Menthol (Cepacol Sore Throat) 1 burke PO Q2 PRN PRN Reason: Sore Throat Enoxaparin Sodium (Lovenox) 30 mg SC HS PAULO; Protocol Last Admin: 06/05/18 23:16 Dose: Not Given Ciprofloxacin (Cipro 400mg/200ml Dsw) 400 mg in 200 mls @ 200 mls/hr IVPB Q12 PAULO; Protocol Last Admin: 06/06/18 09:31 Dose: 200 mls/hr Metronidazole (Flagyl 500mg/100ml Ns) 100 mls @ 100 mls/hr IVPB Q12 PAULO; Protocol Last Admin: 06/06/18 08:12 Dose: 100 mls/hr Sodium Chloride (Sodium Chloride 0.9%) 1,000 mls @ 100 mls/hr IV .Q10H PAULO Stop: 06/08/18 21:00 Last Admin: 06/06/18 13:44 Dose: 100 mls/hr Cefepime HCl 1 gm/ Sodium (Chloride) 100 mls @ 100 mls/hr IVPB Q8@0500,1300,2100 PAULO; Protocol Last Admin: 06/06/18 13:43 Dose: 100 mls/hr Morphine Sulfate (Morphine) 1 mg IVP Q4 PRN PRN Reason: Pain, moderate (4-7) Last Admin: 06/06/18 05:51 Dose: 1 mg Morphine Sulfate (Morphine) 2 mg IVP Q4 PRN PRN Reason: Pain, severe (8-10) Last Admin: 06/05/18 19:36 Dose: 2 mg Ondansetron HCl (Zofran Inj) 4 mg IVP Q6 PRN PRN Reason: Nausea/Vomiting Last Admin: 06/05/18 23:18 Dose: 4 mg Oxycodone/Acetaminophen (Percocet 5/325 Mg Tab) 1 tab PO Q4 PRN PRN Reason: Pain, moderate (4-7) Stop: 06/08/18 18:16 Last Admin: 06/06/18 13:59 Dose: 1 tab Oxycodone/Acetaminophen (Percocet 5/325 Mg Tab) 2 tab PO Q4 PRN PRN Reason: Pain, severe (8-10) Stop: 06/08/18 18:16 - Labs Labs: 06/06/18 05:20 06/06/18 05:20 PT 14.0 Seconds (9.8-13.1) H 06/05/18 15:54 INR 1.3 06/05/18 15:54 APTT 42.1 Seconds (25.6-37.1) H 06/05/18 15:54 - Constitutional Appears: No Acute Distress - Head Exam Head Exam: ATRAUMATIC - ENT Exam ENT Exam: Mucous Membranes Moist - Respiratory Exam Respiratory Exam: Clear to Ausculation Bilateral - Cardiovascular Exam Cardiovascular Exam: REGULAR RHYTHM, +S1, +S2 - GI/Abdominal Exam GI & Abdominal Exam: Soft, Tenderness, Normal Bowel Sounds. absent: Guarding, Rigid Additional comments: tenderness noted at surgical sites - Extremities Exam Extremities Exam: Full ROM. absent: Calf Tenderness - Neurological Exam Neurological Exam: Alert, Awake, Oriented x3 - Psychiatric Exam Psychiatric exam: Normal Affect, Normal Mood - Skin Skin Exam: Dry, Intact Assessment and Plan - Assessment and Plan (Free Text) Assessment: 18 y/o female with PMHx of exercise induced asthma presented to ED c/o abdominal pain and vomitting was found to have appendicitis and sepsis. 1. Sepsis (Acute with SIRS + source of infection- Appendicitis) -Blood culture was + for Gram negative rods. Cefepime added to antibiotic regimen. FU repeat blood cultures. FU repeat cbc. - Criteria met on admission with Temp 100.5F, HR- 107, and 18.2 WBC -Last VS: 97.8F, P-78bpm BP: 108/66 WBC: 15.7 - Continue to monitor vital signs. - Patient on regular diet. -Continue with IV fluids. -Continue with IV Cipro and Flagyl. 2. Appendicitis (Acute) - Surgery performed 06/05/2018. - Continue to monitor vital signs. - Continue regular diet. -Continue with IV fluids. - Continue with IV Cipro and Flagyl. 3. Exercise induced Asthma (Chronic, controlled, asymptomatic) - Last took medications a few years ago. 4. DVT PPX - SCD patient is ambulating <Yuriy Light - Last Filed: 06/06/18 18:24> Objective - Vital Signs/Intake and Output Vital Signs (last 24 hours): Temp Pulse Resp BP Pulse Ox 98.4 F 89 19 106/64 97 06/06/18 16:05 06/06/18 16:05 06/06/18 16:05 06/06/18 16:05 06/06/18 16:05 - Medications Medications: Current Medications Acetaminophen (Tylenol 325mg Tab) 650 mg PO Q4 PRN PRN Reason: Fever >100.4 F Acetaminophen (Tylenol 325mg Tab) 650 mg PO Q4 PRN PRN Reason: Pain, Mild (1-3) Benzocaine/Menthol (Cepacol Sore Throat) 1 burke PO Q2 PRN PRN Reason: Sore Throat Enoxaparin Sodium (Lovenox) 30 mg SC HS PAULO; Protocol Last Admin: 06/05/18 23:16 Dose: Not Given Ciprofloxacin (Cipro 400mg/200ml Dsw) 400 mg in 200 mls @ 200 mls/hr IVPB Q12 PAULO; Protocol Last Admin: 06/06/18 09:31 Dose: 200 mls/hr Metronidazole (Flagyl 500mg/100ml Ns) 100 mls @ 100 mls/hr IVPB Q12 PAULO; Protocol Last Admin: 06/06/18 08:12 Dose: 100 mls/hr Sodium Chloride (Sodium Chloride 0.9%) 1,000 mls @ 100 mls/hr IV .Q10H PAULO Stop: 06/08/18 21:00 Last Admin: 06/06/18 13:44 Dose: 100 mls/hr Cefepime HCl 1 gm/ Sodium (Chloride) 100 mls @ 100 mls/hr IVPB Q8@0500,1300,2100 [facility]; Protocol Last Admin: 06/06/18 13:43 Dose: 100 mls/hr Morphine Sulfate (Morphine) 1 mg IVP Q4 PRN PRN Reason: Pain, moderate (4-7) Last Admin: 06/06/18 05:51 Dose: 1 mg Morphine Sulfate (Morphine) 2 mg IVP Q4 PRN PRN Reason: Pain, severe (8-10) Last Admin: 06/05/18 19:36 Dose: 2 mg Ondansetron HCl (Zofran Inj) 4 mg IVP Q6 PRN PRN Reason: Nausea/Vomiting Last Admin: 06/05/18 23:18 Dose: 4 mg Oxycodone/Acetaminophen (Percocet 5/325 Mg Tab) 1 tab PO Q4 PRN PRN Reason: Pain, moderate (4-7) Stop: 06/08/18 18:16 Last Admin: 06/06/18 13:59 Dose: 1 tab Oxycodone/Acetaminophen (Percocet 5/325 Mg Tab) 2 tab PO Q4 PRN PRN Reason: Pain, severe (8-10) Stop: 06/08/18 18:16 - Labs Labs: 06/06/18 05:20 06/06/18 05:20 PT 14.0 Seconds (9.8-13.1) H 06/05/18 15:54 INR 1.3 06/05/18 15:54 APTT 42.1 Seconds (25.6-37.1) H 06/05/18 15:54 Attending/Attestation - Attestation I have personally seen and examined this patient.: Yes I have fully participated in the care of the patient.: Yes I have reviewed all pertinent clinical information, including history, physical exam and plan: Yes
[2018-06-06] MEDS: Enoxaparin 30 mg Syringe SC SCH (22:47)
[2018-06-07] MEDS: Cefepime 1 GM in Sodium Chloride 0.9% 100 ML IVPB SCH ×2 (04:16→13:29)
[2018-06-07] MEDS: Sodium Chloride 0.9% 1,000 ML IV SCH (04:19)
[2018-06-07 06:36] LABS: BASO % 0.3 % (0.0-2.0); EOS # 0.2 K/uL (0.0-0.7); EOS % 2.2 % (0.0-4.0); HEMOGLOBIN 10.1 g/dL (12.0-16.0); LYMPH # 1.6 K/uL (1.0-4.3); LYMPH % 15.8 % (20.0-40.0); MEAN CELL VOLUME 89.1 fl (81.0-99.0); MEAN CORPUSCULAR HEMOGLOBIN 30.4 pg (27.0-31.0); MEAN CORPUSCULAR HGB CONC 34.2 g/dL (33.0-37.0); MEAN PLATELET VOLUME 9.4 fl (7.2-11.7); MONO # 0.7 K/uL (0.0-0.8); MONO % 6.8 % (0.0-10.0); NEUT # 7.7 K/uL (1.8-7.0); NEUT % 74.9 % (50.0-75.0); RBC 3.32 Mil/uL (3.80-5.20); RED CELL DISTRIBUTION WIDTH 13.5 % (11.5-14.5); WHITE BLOOD COUNT 10.3 K/uL (4.8-10.8)
--- NOTE | 2018-06-07 07:47 | CP.PCM.PN ---
Subjective - Date & Time of Evaluation Date of Evaluation: 06/07/18 Time of Evaluation: 07:46 - Subjective Subjective: Surgery: Dr. Ruano Pt seen and examined. Resting comfortably in bed. No acute events overnight. Pt has no complaints. Objective - Vital Signs/Intake and Output Vital Signs (last 24 hours): Temp Pulse Resp BP Pulse Ox 98.1 F 96 H 19 109/63 98 06/07/18 00:00 06/07/18 00:00 06/07/18 00:00 06/07/18 00:00 06/07/18 00:00 - Medications Medications: Current Medications Acetaminophen (Tylenol 325mg Tab) 650 mg PO Q4 PRN PRN Reason: Fever >100.4 F Acetaminophen (Tylenol 325mg Tab) 650 mg PO Q4 PRN PRN Reason: Pain, Mild (1-3) Benzocaine/Menthol (Cepacol Sore Throat) 1 burke PO Q2 PRN PRN Reason: Sore Throat Enoxaparin Sodium (Lovenox) 30 mg SC DAILY PAULO; Protocol Metronidazole (Flagyl 500mg/100ml Ns) 100 mls @ 100 mls/hr IVPB Q12 PAULO; Protocol Last Admin: 06/06/18 20:31 Dose: 100 mls/hr Sodium Chloride (Sodium Chloride 0.9%) 1,000 mls @ 100 mls/hr IV .Q10H PAULO Stop: 06/08/18 21:00 Last Admin: 06/07/18 04:19 Dose: 100 mls/hr Cefepime HCl 1 gm/ Sodium (Chloride) 100 mls @ 100 mls/hr IVPB Q8@0500,1300,2100 PAULO; Protocol Last Admin: 06/07/18 04:16 Dose: 100 mls/hr Morphine Sulfate (Morphine) 1 mg IVP Q4 PRN PRN Reason: Pain, moderate (4-7) Last Admin: 06/06/18 05:51 Dose: 1 mg Morphine Sulfate (Morphine) 2 mg IVP Q4 PRN PRN Reason: Pain, severe (8-10) Last Admin: 06/05/18 19:36 Dose: 2 mg Ondansetron HCl (Zofran Inj) 4 mg IVP Q6 PRN PRN Reason: Nausea/Vomiting Last Admin: 06/05/18 23:18 Dose: 4 mg Oxycodone/Acetaminophen (Percocet 5/325 Mg Tab) 1 tab PO Q4 PRN PRN Reason: Pain, moderate (4-7) Stop: 06/08/18 18:16 Last Admin: 06/06/18 21:52 Dose: 1 tab Oxycodone/Acetaminophen (Percocet 5/325 Mg Tab) 2 tab PO Q4 PRN PRN Reason: Pain, severe (8-10) Stop: 06/08/18 18:16 - Labs Labs: 06/07/18 05:35 06/06/18 05:20 PT 14.0 Seconds (9.8-13.1) H 06/05/18 15:54 INR 1.3 06/05/18 15:54 APTT 42.1 Seconds (25.6-37.1) H 06/05/18 15:54 - Constitutional Appears: Non-toxic, No Acute Distress - Head Exam Head Exam: ATRAUMATIC, NORMOCEPHALIC - Eye Exam Eye Exam: EOMI - ENT Exam ENT Exam: Mucous Membranes Moist - Neck Exam Neck Exam: Full ROM - Respiratory Exam Respiratory Exam: NORMAL BREATHING PATTERN. absent: Accessory Muscle Use, Respiratory Distress - GI/Abdominal Exam GI & Abdominal Exam: Soft, Tenderness (dann-incisional ). absent: Distended, Firm, Guarding, Rigid, Rebound Additional comments: incisions C/D/I - Extremities Exam Extremities Exam: absent: Calf Tenderness, Pedal Edema - Neurological Exam Neurological Exam: Alert, Awake, Oriented x3 - Psychiatric Exam Psychiatric exam: Normal Affect, Normal Mood Assessment and Plan - Assessment and Plan (Free Text) Assessment: 18F with acute appendicitis s/p laparoscopic appendectomy POD#2 -Prelim Blood Cx: Gram (-) Rods, abx management per primary -Pt clear for D/C from surgical standpoint, encourage ambulation and IS use in interim -F/U in office 1-2 weeks upon D/C -will d/w attending Maile PGY4
[2018-06-07 07:54] VITALS: BP 100/62; PULSE 68; RESP 18; TEMP 98.2; O2SAT 97
[2018-06-07] MEDS: metroNIDAZOLE 500mg/100ml NS 100 ML IVPB SCH (08:21)
[2018-06-07] MEDS ORDERED: Enoxaparin 30 mg Syringe SC SCH (09:00)
--- NOTE | 2018-06-07 09:34 | CP.PCM.PN ---
Subjective - Date & Time of Evaluation Date of Evaluation: 06/07/18 Time of Evaluation: 09:28 - Subjective Subjective: General Surgery Pt seen and examined this AM. She reports feeling abdominal soreness. Pt tolerating regular diet, states her appetite is slowly improving. (-) N/V. Afebrile. Labs and vitals noted. One blood culture grew Gram (-) rods, organism or sensitivities are not yet available. PE Gen: Pt laying in bed in NAD Skin: warm and dry Cardio: s1s2 RRR Lungs: CTA bilaterally Abd: Soft, (+) appropriate tenderness along dermabonded laparoscopic incisions x 3. A/P Appendicitis, Bacteremia, POD 2 Lap Appy without complications Continue diet Continue IV antibiotics Monitor labs Monitor vitals Objective - Vital Signs/Intake and Output Vital Signs (last 24 hours): Temp Pulse Resp BP Pulse Ox 98.2 F 68 18 100/62 97 06/07/18 07:53 06/07/18 07:53 06/07/18 07:53 06/07/18 07:53 06/07/18 07:53 - Medications Medications: Current Medications Acetaminophen (Tylenol 325mg Tab) 650 mg PO Q4 PRN PRN Reason: Fever >100.4 F Acetaminophen (Tylenol 325mg Tab) 650 mg PO Q4 PRN PRN Reason: Pain, Mild (1-3) Benzocaine/Menthol (Cepacol Sore Throat) 1 burke PO Q2 PRN PRN Reason: Sore Throat Enoxaparin Sodium (Lovenox) 30 mg SC DAILY PAULO; Protocol Last Admin: 06/07/18 08:22 Dose: Not Given Metronidazole (Flagyl 500mg/100ml Ns) 100 mls @ 100 mls/hr IVPB Q12 PAULO; Protocol Last Admin: 06/07/18 08:21 Dose: 100 mls/hr Sodium Chloride (Sodium Chloride 0.9%) 1,000 mls @ 100 mls/hr IV .Q10H PAULO Stop: 06/08/18 21:00 Last Admin: 06/07/18 04:19 Dose: 100 mls/hr Cefepime HCl 1 gm/ Sodium (Chloride) 100 mls @ 100 mls/hr IVPB Q8@0500,1300,2100 [facility]; Protocol Last Admin: 06/07/18 04:16 Dose: 100 mls/hr Morphine Sulfate (Morphine) 1 mg IVP Q4 PRN PRN Reason: Pain, moderate (4-7) Last Admin: 06/06/18 05:51 Dose: 1 mg Morphine Sulfate (Morphine) 2 mg IVP Q4 PRN PRN Reason: Pain, severe (8-10) Last Admin: 06/05/18 19:36 Dose: 2 mg Ondansetron HCl (Zofran Inj) 4 mg IVP Q6 PRN PRN Reason: Nausea/Vomiting Last Admin: 06/05/18 23:18 Dose: 4 mg Oxycodone/Acetaminophen (Percocet 5/325 Mg Tab) 1 tab PO Q4 PRN PRN Reason: Pain, moderate (4-7) Stop: 06/08/18 18:16 Last Admin: 06/06/18 21:52 Dose: 1 tab Oxycodone/Acetaminophen (Percocet 5/325 Mg Tab) 2 tab PO Q4 PRN PRN Reason: Pain, severe (8-10) Stop: 06/08/18 18:16 - Labs Labs: 06/07/18 05:35 06/06/18 05:20 PT 14.0 Seconds (9.8-13.1) H 06/05/18 15:54 INR 1.3 06/05/18 15:54 APTT 42.1 Seconds (25.6-37.1) H 06/05/18 15:54
--- NOTE | 2018-06-07 13:25 | CARD ---
APPROVED REPORT Date of service: 06/07/2018 EXAM: Two-dimensional and M-mode echocardiogram with Doppler and color Doppler. Other Information Quality : GoodRhythm : NSR INDICATION Positive Blood Culture/R/O Vegetation 2D DIMENSIONS IVSd0.91 (0.7-1.1cm)LVDd4.55 (3.9-5.9cm) LVOT Diameter1.82 (1.8-2.4cm)PWd0.87 (0.7-1.1cm) IVSs1.23 (0.8-1.2cm)LVDs2.96 (2.5-4.0cm) FS (%) 34.8 %PWs1.41 (0.8-1.2cm) M-Mode DIMENSIONS Left Atrium (MM)3.31 (2.5-4.0cm)Aortic Root2.40 (2.2-3.7cm) Aortic Valve AoV Peak Vstxafpg163.0cm/sAoV VTI22.0cmAO Peak GR.5mmHg LVOT Peak Xesmkzvf30.6cm/sLVOT VTI18.44cmAO Mean GR.3mmHg KADEEM (VMAX)1.31mg3JXD (VTI)1.25cm2 Mitral Valve MV E Hakucnwa00.5cm/sMV DECEL KVAB992cnJC A Rxjeqwhi80.5cm/s MV KXZ19ouM/A ratio1.6MVA (PHT)4.58cm2 TDI Lateral E' Peak V30.15cm/sMedial E' Peak V14.01cm/sE/Lateral E'2.9 E/Medial E'6.3 Pulmonary Valve RVOT VTI17.0cm Tricuspid Valve TR Peak Didahfth570vv/sRAP GUAJLSIP5swIpHG Peak Gr.15mmHg TSYM74jrOc LEFT VENTRICLE The left ventricle is normal size. There is normal left ventricular wall thickness. The left ventricular systolic function is normal. The estimated ejection fraction is 60-65% No regional wall motion abnormalities noted.. The left ventricular diastolic function is normal. No left ventricle thrombus noted on this study. There is no ventricular septal defect visualized. There is no left ventricular aneurysm. There is no mass noted in the left ventricle. RIGHT VENTRICLE The right ventricle is normal size. There is normal right ventricular wall thickness. The right ventricular systolic function is normal. ATRIA The left atrium size is normal. The right atrium size is normal. The interatrial septum is intact with no evidence for an atrial septal defect. AORTIC VALVE The aortic valve is normal in structure. No aortic regurgitation is present. There is no aortic valvular stenosis. There is no aortic valvular vegetation. MITRAL VALVE The mitral valve is normal in structure. There is no evidence of mitral valve prolapse. There is no mitral valve stenosis. There is no mitral valve regurgitation noted. TRICUSPID VALVE The tricuspid valve is normal in structure. There is trace to mild tricuspid regurgitation. RVSP is calculated at 23 mm Hg. There is no tricuspid valve prolapse or vegetation. There is no tricuspid valve stenosis. PULMONIC VALVE The pulmonary valve is normal in structure. There is no pulmonic valvular regurgitation. There is no pulmonic valvular stenosis. GREAT VESSELS The aortic root is normal in size. The ascending aorta is normal in size. The pulmonary artery is normal. The IVC is normal in size and collapses >50% with inspiration. PERICARDIAL EFFUSION There is no pericardial effusion. There is no pleural effusion. <Conclusion> The estimated ejection fraction is 60-65% The left ventricular diastolic function is normal. There is trace to mild tricuspid regurgitation. RVSP is calculated at 23 mm Hg. No vegetations were found on this study. Consider MAGGIE if clinically indicated.
[2018-06-07] MEDS: Oxycodone/Acetaminophen 5/325 mg Tab PO PRN (13:34)
--- NOTE | 2018-06-07 13:52 | CP.PCM.DIS ---
<Shalini Linares - Last Filed: 06/07/18 17:03> Provider - Provider Date of Admission: 06/05/18 16:23 Attending physician: Yuriy Light MD Time Spent in preparation of Discharge (in minutes): 30 Hospital Course - Lab Results Lab Results: Micro Results 06/06/18 11:21 Blood Blood Culture - Preliminary NO GROWTH AFTER 24 HOURS 06/06/18 11:29 Blood Blood Culture - Preliminary NO GROWTH AFTER 24 HOURS 06/05/18 15:30 Blood-Venous Blood Culture - Preliminary Gram Negative Sukumar 06/05/18 15:30 Blood-Venous Gram Stain - Final 06/05/18 15:00 Blood-Venous Blood Culture - Preliminary NO GROWTH AFTER 24 HOURS Most Recent Lab Values WBC 10.3 K/uL (4.8-10.8) 06/07/18 05:35 RBC 3.32 Mil/uL (3.80-5.20) L 06/07/18 05:35 Hgb 10.1 g/dL (12.0-16.0) L 06/07/18 05:35 Hct 29.6 % (34.0-47.0) L 06/07/18 05:35 MCV 89.1 fl (81.0-99.0) 06/07/18 05:35 MCH 30.4 pg (27.0-31.0) 06/07/18 05:35 MCHC 34.2 g/dL (33.0-37.0) 06/07/18 05:35 RDW 13.5 % (11.5-14.5) 06/07/18 05:35 Plt Count 254 K/uL (130-400) 06/07/18 05:35 MPV 9.4 fl (7.2-11.7) 06/07/18 05:35 Neut % (Auto) 74.9 % (50.0-75.0) 06/07/18 05:35 Lymph % (Auto) 15.8 % (20.0-40.0) L 06/07/18 05:35 Bucks % (Auto) 6.8 % (0.0-10.0) 06/07/18 05:35 Eos % (Auto) 2.2 % (0.0-4.0) 06/07/18 05:35 Baso % (Auto) 0.3 % (0.0-2.0) 06/07/18 05:35 Neut # (Auto) 7.7 K/uL (1.8-7.0) H 06/07/18 05:35 Lymph # (Auto) 1.6 K/uL (1.0-4.3) 06/07/18 05:35 Bucks # (Auto) 0.7 K/uL (0.0-0.8) 06/07/18 05:35 Eos # (Auto) 0.2 K/uL (0.0-0.7) 06/07/18 05:35 Baso # (Auto) 0.0 K/uL (0.0-0.2) 06/07/18 05:35 Neutrophils % (Manual) 89 % (42-75) H 06/05/18 10:27 Band Neutrophils % 2 % (0-2) 06/05/18 10:27 Lymphocytes % (Manual) 8 % (20-50) L 06/05/18 10:27 Monocytes % (Manual) 1 % (0-10) 06/05/18 10:27 Platelet Estimate Normal (NORMAL) 06/05/18 10:27 Anisocytosis (manual) Slight 06/05/18 10:27 PT 14.0 Seconds (9.8-13.1) H 06/05/18 15:54 INR 1.3 06/05/18 15:54 APTT 42.1 Seconds (25.6-37.1) H 06/05/18 15:54 pO2 35 mm/Hg (30-55) 06/05/18 15:45 VBG pH 7.36 (7.32-7.43) 06/05/18 15:45 VBG pCO2 42 mmHg (40-60) 06/05/18 15:45 VBG HCO3 22.6 mmol/L 06/05/18 15:45 VBG Total CO2 25.0 mmol/L (22-28) 06/05/18 15:45 VBG O2 Sat (Calc) 71.7 % (40-65) H 06/05/18 15:45 VBG Base Excess -1.8 mmol/L (0.0-2.0) L 06/05/18 15:45 VBG Potassium 3.3 mmol/L (3.6-5.2) L 06/05/18 15:45 Sodium 136.0 mmol/L (132-148) 06/05/18 15:45 Chloride 106.0 mmol/L (98-107) 06/05/18 15:45 Glucose 96 mg/dL (65-105) 06/05/18 15:45 Lactate 0.9 mmol/L (0.7-2.1) 06/05/18 15:45 FiO2 21.0 % 06/05/18 15:45 Sodium 138 mmol/l (132-148) 06/06/18 05:20 Potassium 3.6 MMOL/L (3.6-5.0) 06/06/18 05:20 Chloride 106 mmol/L (98-107) 06/06/18 05:20 Carbon Dioxide 22 mmol/L (22-30) 06/06/18 05:20 Anion Gap 14 (10-20) 06/06/18 05:20 BUN 3 mg/dl (7-17) L 06/06/18 05:20 Creatinine 0.5 mg/dl (0.7-1.2) L 06/06/18 05:20 Est GFR ( Amer) > 60 06/06/18 05:20 Est GFR (Non-Af Amer) > 60 06/06/18 05:20 Random Glucose 87 mg/dL (65-105) 06/06/18 05:20 Calcium 9.2 mg/dL (8.4-10.2) 06/06/18 05:20 Total Bilirubin 0.7 mg/dl (0.2-1.3) 06/05/18 10:27 AST 26 U/L (14-36) 06/05/18 10:27 ALT 22 U/L (9-52) 06/05/18 10:27 Alkaline Phosphatase 81 U/L (38-126) 06/05/18 10:27 Total Protein 8.4 G/DL (6.3-8.2) H 06/05/18 10:27 Albumin 4.8 g/dL (3.5-5.0) 06/05/18 10:27 Globulin 3.6 gm/dL (2.2-3.9) 06/05/18 10:27 Albumin/Globulin Ratio 1.3 (1.0-2.1) 06/05/18 10:27 Amylase 90 U/L (30-110) 06/05/18 10:27 Lipase 37 U/L (23-300) 06/05/18 10:27 Venous Blood Potassium 3.3 mmol/L (3.6-5.2) L 06/05/18 15:45 Urine Color Yellow (YELLOW) 06/05/18 10:27 Urine Clarity Slighty-cloudy (Clear) 06/05/18 10:27 Urine pH 7.0 (5.0-8.0) 06/05/18 10:27 Ur Specific [place] 1.024 (1.003-1.030) 06/05/18 10:27 Urine Protein 100 mg/dL (NEGATIVE) 06/05/18 10:27 Urine Glucose (UA) Neg mg/dL (Normal) 06/05/18 10:27 Urine Ketones Trace mg/dL (NEGATIVE) 06/05/18 10:27 Urine Blood Negative (NEGATIVE) 06/05/18 10:27 Urine Nitrate Negative (NEGATIVE) 06/05/18 10:27 Urine Bilirubin Negative (NEGATIVE) 06/05/18 10:27 Urine Urobilinogen 2.0 mg/dL (0.2-1.0) H 06/05/18 10:27 Ur Leukocyte Esterase Neg Stefan/uL (Negative) 06/05/18 10:27 Urine RBC (Auto) 3 /hpf (0-3) 06/05/18 10:27 Urine Microscopic WBC 5 /hpf (0-5) 06/05/18 10:27 Ur Squamous Epith Cells 3 /hpf (0-5) 06/05/18 10:27 - Hospital Course Hospital Course: 18 y/o female with PMHx of exercise induced asthma admitted for appendicitis POD 2 s/p laparoscopic appendectomy tolerated a regular diet. Steristripes at site of surgery were removed, and sites were minimally tender. Patient denied any fever, chills, chest pain or shortness of breath. 1. Sepsis (Acute with SIRS + source of infection- resolved) -Cefuroxime 500mg PO BID, 20 tab 2. Appendicitis (Acute, resolved) - Surgery completed on 06/04/2018. 3. Exercise induced Asthma (Chronic, controlled, asymptomatic) - Last took medications a few years ago. Discharge Exam - Head Exam Head Exam: ATRAUMATIC, NORMOCEPHALIC - ENT Exam ENT Exam: Mucous Membranes Moist - Respiratory Exam Respiratory Exam: Clear to PA & Lateral - Cardiovascular Exam Cardiovascular Exam: REGULAR RHYTHM, +S1, +S2 - GI/Abdominal Exam GI & Abdominal Exam: Soft. absent: Distended, Firm, Guarding Additional comments: minimally tender at sites of laparoscopic appendectomy - Neurological Exam Neurological exam: Alert, Oriented x3 - Psychiatric Exam Psychiatric exam: Normal Affect, Normal Mood - Skin Skin Exam: Dry, Intact Discharge Plan - Discharge Medications Prescriptions: Cefuroxime Axetil [Cefuroxime] 500 mg PO BID #20 tablet - Follow Up Plan Condition: STABLE Disposition: HOME/ ROUTINE Instructions: Appendicitis in Adults, Appendectomy, Laparoscopic Surgery (DC) Additional Instructions: Please follow up in Dr. Walker's office in 2 weeks. For pain, over the counter Tylenol and Ibuprofen. Please do not take baths or go in pools for the next 2 weeks. Okay to shower. You can remove the band-aids tomorrow (06/07/18), and you will notice glue over the incision sites. Do not scratch off the glue as it will slowly flake off on its own over the next 1-2 weeks. No heavy lifting for the next 4-6 weeks greater than 15-20 pounds. Referrals: Lemuel Walker MD [Staff Provider] - <Yuriy Light - Last Filed: 06/07/18 17:21> Provider - Provider Date of Admission: 06/05/18 16:23 Attending physician: Yuriy Light MD Hospital Course - Lab Results Lab Results: Micro Results 06/05/18 15:00 Blood-Venous Blood Culture - Preliminary NO GROWTH AFTER 48 HOURS 06/06/18 11:21 Blood Blood Culture - Preliminary NO GROWTH AFTER 24 HOURS 06/06/18 11:29 Blood Blood Culture - Preliminary NO GROWTH AFTER 24 HOURS 06/05/18 15:30 Blood-Venous Blood Culture - Preliminary Gram Negative Sukumar 06/05/18 15:30 Blood-Venous Gram Stain - Final Most Recent Lab Values WBC 10.3 K/uL (4.8-10.8) 06/07/18 05:35 RBC 3.32 Mil/uL (3.80-5.20) L 06/07/18 05:35 Hgb 10.1 g/dL (12.0-16.0) L 06/07/18 05:35 Hct 29.6 % (34.0-47.0) L 06/07/18 05:35 MCV 89.1 fl (81.0-99.0) 06/07/18 05:35 MCH 30.4 pg (27.0-31.0) 06/07/18 05:35 MCHC 34.2 g/dL (33.0-37.0) 06/07/18 05:35 RDW 13.5 % (11.5-14.5) 06/07/18 05:35 Plt Count 254 K/uL (130-400) 06/07/18 05:35 MPV 9.4 fl (7.2-11.7) 06/07/18 05:35 Neut % (Auto) 74.9 % (50.0-75.0) 06/07/18 05:35 Lymph % (Auto) 15.8 % (20.0-40.0) L 06/07/18 05:35 Bucks % (Auto) 6.8 % (0.0-10.0) 06/07/18 05:35 Eos % (Auto) 2.2 % (0.0-4.0) 06/07/18 05:35 Baso % (Auto) 0.3 % (0.0-2.0) 06/07/18 05:35 Neut # (Auto) 7.7 K/uL (1.8-7.0) H 06/07/18 05:35 Lymph # (Auto) 1.6 K/uL (1.0-4.3) 06/07/18 05:35 Bucks # (Auto) 0.7 K/uL (0.0-0.8) 06/07/18 05:35 Eos # (Auto) 0.2 K/uL (0.0-0.7) 06/07/18 05:35 Baso # (Auto) 0.0 K/uL (0.0-0.2) 06/07/18 05:35 Neutrophils % (Manual) 89 % (42-75) H 06/05/18 10:27 Band Neutrophils % 2 % (0-2) 06/05/18 10:27 Lymphocytes % (Manual) 8 % (20-50) L 06/05/18 10:27 Monocytes % (Manual) 1 % (0-10) 06/05/18 10:27 Platelet Estimate Normal (NORMAL) 06/05/18 10:27 Anisocytosis (manual) Slight 06/05/18 10:27 PT 14.0 Seconds (9.8-13.1) H 06/05/18 15:54 INR 1.3 06/05/18 15:54 APTT 42.1 Seconds (25.6-37.1) H 06/05/18 15:54 pO2 35 mm/Hg (30-55) 06/05/18 15:45 VBG pH 7.36 (7.32-7.43) 06/05/18 15:45 VBG pCO2 42 mmHg (40-60) 06/05/18 15:45 VBG HCO3 22.6 mmol/L 06/05/18 15:45 VBG Total CO2 25.0 mmol/L (22-28) 06/05/18 15:45 VBG O2 Sat (Calc) 71.7 % (40-65) H 06/05/18 15:45 VBG Base Excess -1.8 mmol/L (0.0-2.0) L 06/05/18 15:45 VBG Potassium 3.3 mmol/L (3.6-5.2) L 06/05/18 15:45 Sodium 136.0 mmol/L (132-148) 06/05/18 15:45 Chloride 106.0 mmol/L (98-107) 06/05/18 15:45 Glucose 96 mg/dL (65-105) 06/05/18 15:45 Lactate 0.9 mmol/L (0.7-2.1) 06/05/18 15:45 FiO2 21.0 % 06/05/18 15:45 Sodium 138 mmol/l (132-148) 06/06/18 05:20 Potassium 3.6 MMOL/L (3.6-5.0) 06/06/18 05:20 Chloride 106 mmol/L (98-107) 06/06/18 05:20 Carbon Dioxide 22 mmol/L (22-30) 06/06/18 05:20 Anion Gap 14 (10-20) 06/06/18 05:20 BUN 3 mg/dl (7-17) L 06/06/18 05:20 Creatinine 0.5 mg/dl (0.7-1.2) L 06/06/18 05:20 Est GFR ( Amer) > 60 06/06/18 05:20 Est GFR (Non-Af Amer) > 60 06/06/18 05:20 Random Glucose 87 mg/dL (65-105) 06/06/18 05:20 Calcium 9.2 mg/dL (8.4-10.2) 06/06/18 05:20 Total Bilirubin 0.7 mg/dl (0.2-1.3) 06/05/18 10:27 AST 26 U/L (14-36) 06/05/18 10:27 ALT 22 U/L (9-52) 06/05/18 10:27 Alkaline Phosphatase 81 U/L (38-126) 06/05/18 10:27 Total Protein 8.4 G/DL (6.3-8.2) H 06/05/18 10:27 Albumin 4.8 g/dL (3.5-5.0) 06/05/18 10:27 Globulin 3.6 gm/dL (2.2-3.9) 06/05/18 10:27 Albumin/Globulin Ratio 1.3 (1.0-2.1) 06/05/18 10:27 Amylase 90 U/L (30-110) 06/05/18 10:27 Lipase 37 U/L (23-300) 06/05/18 10:27 Venous Blood Potassium 3.3 mmol/L (3.6-5.2) L 06/05/18 15:45 Urine Color Yellow (YELLOW) 06/05/18 10:27 Urine Clarity Slighty-cloudy (Clear) 06/05/18 10:27 Urine pH 7.0 (5.0-8.0) 06/05/18 10:27 Ur Specific [place] 1.024 (1.003-1.030) 06/05/18 10:27 Urine Protein 100 mg/dL (NEGATIVE) 06/05/18 10:27 Urine Glucose (UA) Neg mg/dL (Normal) 06/05/18 10:27 Urine Ketones Trace mg/dL (NEGATIVE) 06/05/18 10:27 Urine Blood Negative (NEGATIVE) 06/05/18 10:27 Urine Nitrate Negative (NEGATIVE) 06/05/18 10:27 Urine Bilirubin Negative (NEGATIVE) 06/05/18 10:27 Urine Urobilinogen 2.0 mg/dL (0.2-1.0) H 06/05/18 10:27 Ur Leukocyte Esterase Neg Stefan/uL (Negative) 06/05/18 10:27 Urine RBC (Auto) 3 /hpf (0-3) 06/05/18 10:27 Urine Microscopic WBC 5 /hpf (0-5) 06/05/18 10:27 Ur Squamous Epith Cells 3 /hpf (0-5) 06/05/18 10:27 Attending/Attestation - Attestation I have personally seen and examined this patient.: Yes I have fully participated in the care of the patient.: Yes I have reviewed all pertinent clinical information, including history, physical exam and plan: Yes
== END 2018-06-07 15:29 | disposition home or self-care (01) | DRG 898 ==
LOC: H.ER 09:28 → H.ERHOLD 16:23 → H.MEDSURG1 20:50
PROC: 0DTJ4ZZ Resection of Appendix, Percutaneous Endoscopic Approach (ICD-10-PCS; principal; 2018-06-05 17:30)
DX: A41.50 Gram-negative sepsis, unspecified (principal); K35.80 Unspecified acute appendicitis; J45.990 Exercise induced bronchospasm